=== PATIENT | female | born 1970 | race Caucasian/White ===

== ENCOUNTER 2017-11-16 06:00 | Day surgery (SDC) | payer OTHER ==
[~2017-11-16 06:00] MED LIST: FLECAINIDE ACET50 MG PO; SYNTHROID112 MCG PO
[2017-11-16] MEDS ORDERED: PERCOCET 5-3251 EACH PO (10:38)
[2017-11-16] MEDS ORDERED: NABUMETONE500 MG PO (10:38)
== END 2017-11-16 13:35 | disposition home or self-care (01) ==
LOC: CIR.AMB 06:00
DX: M23.352 Other meniscus derangements, posterior horn of lateral meniscus, left knee (principal); M23.322 Other meniscus derangements, posterior horn of medial meniscus, left knee; M22.42 Chondromalacia patellae, left knee; M65.862 Other synovitis and tenosynovitis, left lower leg; M13.862 Other specified arthritis, left knee